=== PATIENT | female | born 1980 | race Two or more races ===

== ENCOUNTER 2019-08-12 05:22 | Day surgery (SDC) | payer OTHER ==
[~2019-08-12 05:22] MED LIST: DEXILANT60 MG PO; LAMOTRIGINE200 MG PO; SYNTHROID112 MCG PO; VASOTEC10 MG PO
[2019-08-12] MEDS ORDERED: DEXILANT60 MG PO (08:22)
[2019-08-12] MEDS ORDERED: PERCOCET 5-3251 EACH PO (08:23)
== END 2019-08-12 10:59 | disposition home or self-care (01) ==
LOC: CIR.AMB 05:22 → EDSTATUS 09:15 → CIR.AMB 09:15 → SURG 09:15 → CIR.AMB 10:59
DX: K81.1 Chronic cholecystitis (principal)